=== PATIENT | male | born 1945 | race Caucasian/White ===

== ENCOUNTER 2022-02-20 02:42 | Emergency (ER) | payer MEDICARE ==
[~2022-02-20] VITALS: Ht 182.9 cm; Wt 79.4 kg
[2022-02-20] MEDS ORDERED: EPIPEN0.3 MG/0.1 IM (05:24)
== END 2022-02-20 05:40 | disposition home or self-care (01) ==
LOC: ER 02:42
DX: T78.3XXA Angioneurotic edema, initial encounter (principal); Z88.6 Allergy status to analgesic agent; Z88.8 Allergy status to other drugs, medicaments and biological substances; Z91.040 Latex allergy status; Z91.018 Allergy to other foods
CPT/HCPCS: 96374; 96375; 99283-25; J1200; J2930